=== PATIENT | female | born 1970 | race Caucasian/White ===

== ENCOUNTER 2019-06-08 16:57 | Emergency (ER) | payer MEDICARE ==
[~2019-06-08] VITALS: Ht 154.9 cm; Wt 81.8 kg
[2019-06-08 17:06] VITALS: Ht 154.9 cm; Wt 81.8 kg
[2019-06-08] MEDS ORDERED: COZAAR100 MG PO (17:09)
[2019-06-08] MEDS ORDERED: CYMBALTA60 MG PO (17:09)
[2019-06-08] MEDS ORDERED: HYDROCHLOROTHIA25 MG PO (17:10)
[2019-06-08] MEDS ORDERED: PROTONIX40 MG PO (17:10)
[2019-06-08] MEDS ORDERED: NEURONTIN800 MG PO (17:11)
[2019-06-08] MEDS ORDERED: ZANAFLEX4 MG PO (17:11)
[2019-06-08] MEDS ORDERED: XANAX0.5 MG PO (17:12)
[2019-06-08] MEDS ORDERED: SYMBICORT 16010.2 GM INH (17:12)
[2019-06-08 17:44] LABS: BASOPHILS 0.2 % (0-2); EOSINOPHILS 0.9 % (0-7); HEMATOCRIT 43.7 % (36.0-48.0); HEMOGLOBIN 14.7 g/dL (12-16); IMMATURE GRANULOCYTES 0.3 % (0-5); LYMPHOCYTES 13.2 % (15-50); MCH 33.1 pg (26.0-34.0); MCHC 33.6 g/dL (31.0-37.0); MCV 98.4 fL (80.0-100.0); MEAN PLATELET VOLUME 9.4 fL (7.4-10.4); NEUTROPHILS 79.4 % (40-80); PLATELET COUNT 354 10x3/uL (130-400); RBC 4.44 10x6/uL (4.00-5.40); RDW 13.8 % (11.5-14.5); WBC 11.5 10x3/uL (4.8-10.8)
[2019-06-08 17:53] LABS: ANION GAP 15.8 mmol/L (8-16); CREATININE - SERUM 0.9 mg/dL (0.6-1.3); POTASSIUM - SERUM 3.8 mmol/L (3.5-5.1)
[2019-06-08 17:57] LABS: ALBUMIN 3.9 g/dL (3.4-5.0); MAGNESIUM - SERUM 1.9 mg/dL (1.8-2.4)
[2019-06-08 18:10] LABS: BILIRUBIN - TOTAL 0.49 mg/dL (0.2-1.3); PROTEIN - SERUM 7.9 g/dL (6.4-8.2)
[2019-06-08 18:23] LABS: UDS - AMPHET NEGATIVE QUAL (NEGATIVE); UDS - BARB NEGATIVE QUAL (NEGATIVE); UDS - BENZO NEGATIVE QUAL (NEGATIVE); UDS - COCAINE NEGATIVE QUAL (NEGATIVE); UDS - OPIATE NEGATIVE QUAL (NEGATIVE); UDS - PCP NEGATIVE QUAL (NEGATIVE); UDS - THC POSITIVE QUAL (NEGATIVE)
[2019-06-08 18:28] LABS: APPEARANCE CLEAR (CLEAR); BILIRUBIN NEGATIVE (NEGATIVE); COLOR YELLOW (YELLOW); GLUCOSE NEGATIVE (NEGATIVE); KETONE NEGATIVE (NEGATIVE); NITRITE NEGATIVE (NEGATIVE); PROTEIN TRACE mg/dL (NEGATIVE); SPECIFIC GRAVITY 1.015 (1.005-1.020); UROBILINOGEN NORMAL (NORMAL)
[2019-06-08 18:32] LABS: BACTERIA MODERATE /hpf (NEGATIVE); EPITHELIAL CELLS 0-5 /hpf (0-5); RED CELLS - URINE OCC /hpf (0-5); WHITE CELLS - URINE 0-5 /hpf (NEGATIVE)
[2019-06-08] MEDS ORDERED: ATIVAN0.5 MG PO (19:59)
[2019-06-08 20:10] VITALS: BP 151/86
== END 2019-06-08 20:10 | disposition home or self-care (01) ==
LOC: D.ER 16:57
PROVIDERS: Family Medicine
DX: F19.939 Other psychoactive substance use, unspecified with withdrawal, unspecified (principal); R56.9 Unspecified convulsions

== ENCOUNTER 2020-03-20 09:40 | Day surgery (SDC) | payer MEDICARE ==
[~2020-03-20] VITALS: Ht 154.9 cm; Wt 81.8 kg
[~2020-03-20 09:40] MED LIST: ATIVAN0.5 MG PO; COZAAR100 MG PO; CYMBALTA60 MG PO; HYDROCHLOROTHIA25 MG PO; NEURONTIN800 MG PO; PROTONIX40 MG PO; SYMBICORT 16010.2 GM INH; XANAX0.5 MG PO; ZANAFLEX4 MG PO
[2020-03-20 10:17] LABS: CALC OSMOLALITY 273 mosm/kg (275-300); CALCIUM 9.2 mg/dL (8.5-10.1); CARBON DIOXIDE 32.6 mmol/L (21.0-32.0); CHLORIDE - SERUM 104 mmol/L (98-107); CREATININE - SERUM 0.8 mg/dL (0.6-1.3); GLUCOSE 105 mg/dL (74-106); SODIUM 138 mmol/L (136-145); UREA NITROGEN 6 mg/dL (7-18); eGFR NON AFRICAN AMERICAN 80 mL/min (90-120)
[2020-03-20 10:29] LABS: HEMATOCRIT 44.6 % (36.0-48.0); HEMOGLOBIN 14.4 g/dL (12-16); MCH 31.4 pg (26.0-34.0); MCHC 32.3 g/dL (31.0-37.0); MCV 97.4 fL (80.0-100.0); MEAN PLATELET VOLUME 10.1 fL (7.4-10.4); RBC 4.58 10x6/uL (4.00-5.40); RDW 13.3 % (11.5-14.5)
[2020-03-20] MEDS ORDERED: BACLOFEN20 M1 PO (10:30)
[2020-03-20] MEDS ORDERED: DEXILANT30 MG PO (10:31)
[2020-03-20] MEDS ORDERED: KEPPRA500 MG PO (10:32)
[2020-03-20 10:38] VITALS: BP 139/70; Ht 154.9 cm; Wt 81.8 kg
--- NOTE | 2020-03-20 17:57 | NUR ---
1603 PT IS NAUSEATED AND HAS A SMALL AMOUNT OF YELLOW EMESIS. [address] SCHUMACHER TO GIVE PT ZOFRAN FOR NAUSEA. 1621 IV ABX STARTED ORDERED BY DR SCHUMACHER. PCXR HAS BEEN PERFORMED AND WAITING ON RESULTS. PT WAS TOLD ON ARRIVAL TO ROOM THAT SHE CAN NOT EAT OR DRINK ANYTHING UNTIL WE GET THE RESULTS OF THE CXR. 1700 DR SCHUMACHER HAS REVIEWED CXR REPORT AND STATED THAT PT CAN NOW HAVE SOMETHING TO DRINK. 1715 DR SCHUMACHER CAME BY TO CHECK ON PT AND SHE STATES THAT SHE FEELS MUCH BETTER. HER ABDOMINAL PAIN LEVEL HAS GONE FROM A 10 OUT OF 10 TO A 5 OUT OF 10. PT DOES NOT HAVE ANY NAUSEA AND IS TOLERATING DRINKING LIQUIDS. IV DC'D. CATHETER TIP INTACT. NO BLEEDING AT SITE. BANDAID APPLIED. 1732 PT IS DRESSED. DISCHARGED INSTRUCTIONS REVIEWED WITH PT AND HER WHO BOTH VOICE UNDERSTANDING OF INSTRUCTIONS.
--- NOTE | 2020-03-21 17:42 | OP ---
PATIENT NAME: ISH SWANSON MEDICAL RECORD: [id number] :68 LOCATION:D.OPS ADMISSION DATE: SURGEON: DAMIAN SCHUMACHER MD DATE OF OPERATION: 03/20/2020 PREOPERATIVE DIAGNOSIS: Complex cecal polyp. POSTOPERATIVE DIAGNOSES: Complex cecal polyp. There was a secondary sessile polyp, which was a 9-mm polyp. PROCEDURES: 1. Total colonoscopy to cecum. 2. Endoscopic mucosal resection, polypectomy of the cecal polyp. 3. Hot biopsy forceps polypectomy times 1. 4. Argon plasma coagulation therapy. 5. Placement of 3 endoscopic clips. SURGEON: Damian Schumacher MD TOBACCO BALER: None. BLOOD LOSS: Minimal. ANESTHESIA: IV sedation. COMPLICATIONS: None. The risks, possible complications and alternatives to the procedure were explained to the patient. She elects to proceed. The discussion specifically included, but was not limited to, bleeding requiring emergency reoperation, endoscopic perforation and the possibility of the need for a colon resection in the future. ENDOSCOPIC COURSE: The patient was conveyed to endoscopy suite electively on 03/20/2020. IV sedation was induced by the anesthesia staff. The patient was placed in the Baldwin position. A digital rectal examination was performed. A colonoscope was inserted through the anus. It was easily advanced to the cecum. The prep was marginal. I identified the cecal polyp. I advanced a sclerotherapy needle and performed a submucosal injection of epinephrine for a post-procedure hemostasis. Through the same sclerotherapy needle, I injected Eleview, to get a good lift of the polyp away from the colonic wall. I advanced endoscopic snare and performed a piecemeal snare polypectomy of the polyp. I grasped as much of the polyp as I could with an endoscopic retrieval net and withdrew it out through the anus. I then readvanced the endoscope, I was able to suction up some additional polypoid tissue into a polyp trap. Some residual polypoid tissue was removed with the cold biopsy forceps. I then utilized the argon plasma blood bank supervisor with the right colon setting in the forced mode to ablate any residual polypoid tissue that might be left behind. I then placed a row of 3 endoscopic clips for post-procedure hemostasis as well as for tissue reinforcement. OPERATIVE REPORT [id number] ISH SWANSON I then slowly withdrew the endoscope. The pullback was greater than a 25-minute pullback. I dragged the folds. A retroflexed view was obtained in the rectum. I then unretroflexed the scope and removed it under direct vision. I will see the patient in my office in 2-3 weeks. If no malignancy is present within the polyp, then I am going to plan for her next colonoscopy to take place in 1 year. TRANSINT:[id number] Voice Confirmation ID: [id number] DOCUMENT ID: [id number] DAMIAN SCHUMACHER MD at 1742 CC: EMILIE REID MD and VARSHA JAUREGUI [id number] DICTATION DATE: 03/20/20 1552 CABLE SPLICER HELPER: 03/21/20 0115 [facility] [place] 03/20/20 [facility] [address] [place] [address]
--- NOTE | 2020-03-21 17:42 | HP ---
PATIENT: ISH SWANSON MEDICAL RECORD: [id number] ACCOUNT: [id number] LOCATION:[facility] : 68 ADMISSION DATE: 03/20/20 PCP: EMILIE REID MD HISTORY AND PHYSICAL EXAMINATION HISTORY OF PRESENT ILLNESS: The patient has a history of numerous colon polyps. The most worrisome of these is a large complex polyp in the cecum. I have personally reviewed the endoscopic photos. PAST MEDICAL AND SURGICAL HISTORY: Gastroesophageal reflux, cervical nerve root compression, history of hysterectomy and tubal ligation, history of cholecystectomy, history of seizures, history of hypertension, chronic TACs. MEDICATIONS: Please see the nursing list. ALLERGIES: DECADRON AND AMOXICILLIN. PHYSICAL EXAMINATION: GENERAL: The patient does not appear acutely ill. She does not appear chronically ill. VITAL SIGNS: Reviewed. EARS: External ears appear normal. EYES: Extraocular movements are intact. NECK: Trachea is midline. CHEST: No intercostal retractions. PULMONARY: Nonlabored, no stridor. IMPRESSION: Complex cecal polyp. PLAN: Colonoscopy with polypectomy. We specifically discussed the risk of endoscopic perforation. TRANSINT:[id number] Voice Confirmation ID: [id number] DOCUMENT ID: [id number] DAMIAN SCHUMACHER MD at 1742 CC: ALBINO REDDY MD and EMILIE REID MD [id number] DICTATION DATE: 03/20/20 1539 [employer] ARCHITECT: 03/20/20 1555 [facility] 03/20/20 [facility] [address] [place] [id number]
== END 2020-03-20 17:32 | disposition home or self-care (01) ==
LOC: D.OPS 09:40
PROVIDERS: Anesthesiology; ATTEND Surgery
DX: K63.5 Polyp of colon (principal); I10 Essential (primary) hypertension; D12.0 Benign neoplasm of cecum